=== PATIENT | female | born 1965 | race Caucasian/White ===

== ENCOUNTER 2017-07-09 21:28 | Emergency (ER) | payer BC, OTHER ==
[2017-07-09] MEDS: LIDOCAINE 1% (MPF) 30 ML INJ INJ (23:40)
[2017-07-10] MEDS: LIDOCAINE 1%/EPI (MDV) 50 ML INJ INJ (00:30)
== END 2017-07-10 03:54 | disposition home or self-care (01) ==
LOC: E/R 21:28
DX: S01.81XA Laceration without foreign body of other part of head, initial encounter (principal); R40.2252 Coma scale, best verbal response, oriented, at arrival to emergency department; S16.1XXA Strain of muscle, fascia and tendon at neck level, initial encounter; S09.90XA Unspecified injury of head, initial encounter; R40.2142 Coma scale, eyes open, spontaneous, at arrival to emergency department; R40.2362 Coma scale, best motor response, obeys commands, at arrival to emergency department; W18.39XA Other fall on same level, initial encounter; Y92.009 Unspecified place in unspecified non-institutional (private) residence as the place of occurrence of the external cause
CPT/HCPCS: 12013; 70450; 72125; 99285-25

== ENCOUNTER 2017-08-01 12:56 | Emergency (ER) | payer BC | END 2017-08-01 14:29 | disposition home or self-care (01) | LOC: FTE 12:56 | DX: L98.9 Disorder of the skin and subcutaneous tissue, unspecified (principal); F41.9 Anxiety disorder, unspecified; Z48.02 Encounter for removal of sutures | CPT/HCPCS: 99284 ==

== ENCOUNTER 2018-10-02 07:43 | Day surgery (SDC) | payer BC ==
[2018-10-02] MEDS ORDERED: PROPOFOL 40 ML (09:22)
== END 2018-10-02 11:15 | disposition home or self-care (01) ==
LOC: GIL 07:43
DX: Z12.11 Encounter for screening for malignant neoplasm of colon (principal); K29.00 Acute gastritis without bleeding; R10.13 Epigastric pain
CPT/HCPCS: 43239; 88305; 88312